=== PATIENT | male | born 1945 | race Caucasian/White ===

== ENCOUNTER 2020-07-30 14:02 | Inpatient (IN) | payer MEDICARE ==
[2020-07-31 19:29] VITALS: BP 131/73; PULSE 75; RESP 16; TEMP 97.8
== END 2020-07-31 22:09 | disposition short-term general hospital (02) | DRG 439 ==
LOC: EC 14:02 → 5NMEDONC 17:14
PROVIDERS: ADMIT Internal Medicine; ATTEND Internal Medicine
DX: K86.89 Other specified diseases of pancreas (principal); K80.21 Calculus of gallbladder without cholecystitis with obstruction; K82.1 Hydrops of gallbladder; I10 Essential (primary) hypertension; R21 Rash and other nonspecific skin eruption; R19.09 Other intra-abdominal and pelvic swelling, mass and lump; K82.8 Other specified diseases of gallbladder; K85.90 Acute pancreatitis without necrosis or infection, unspecified; Z79.82 Long term (current) use of aspirin; Z80.0 Family history of malignant neoplasm of digestive organs; Z85.828 Personal history of other malignant neoplasm of skin; Z20.822 Contact with and (suspected) exposure to COVID-19; Z82.49 Family history of ischemic heart disease and other diseases of the circulatory system; Z79.899 Other long term (current) drug therapy
CPT/HCPCS: 36415; 74177; 76705; 80053; 80074; 83690; 83735; 85025; 85027; 85610; 85730; 87635; 99285

== ENCOUNTER 2020-08-08 23:07 | Emergency (ER) | payer MEDICARE ==
[2020-08-08 23:15] VITALS: TEMP 98.6
[2020-08-08] MEDS ORDERED: SODIUM CHLORIDE 0.9% 500 ML 500 ML IV ONE (23:54)
--- NOTE | 2020-08-09 00:29 | ED ---
General Adult HPI - General Chief complaint: Weakness Stated complaint: Shaking Time Seen by Provider: 08/08/20 23:31 Source: patient, family Mode of arrival: ambulatory Limitations: no limitations - History of Present Illness Initial comments: 74-year-old male patient recently diagnosed with pancreatic cancer, underwent placement of a pancreatic duct stent 4 days ago at [facility], presents to the emergency department today after having an episode of generalized shaking. Patient states that he suddenly started to have full body shaking. States he's been feeling well throughout the day. States the shaking is now resolved. Denies any known fever or chills. Denies any current pain or discomfort. States he is urinating without difficulty. States stools have been soft today. No bloody or black stools. Denies nausea or vomiting. Patient denies any recent rash, cough, shortness of breath, chest pain, abdominal pain, back pain, numbness, tingling, dizziness, weakness, hematuria, dysuria, urinary urgency, urinary frequency, headache, visual changes, or any other complaints. - Related Data Home Medications Medication Instructions Recorded Confirmed Aspirin 81 mg PO HS 07/30/20 07/30/20 amLODIPine BESYLATE [Norvasc] 2.5 mg PO BID 07/30/20 07/30/20 Allergies Allergy/AdvReac Type Severity Reaction Status Date / Time No Known Allergies Allergy Verified 08/08/20 23:15 Review of Systems ROS Statement: Those systems with pertinent positive or pertinent negative responses have been documented in the HPI. ROS Other: All systems not noted in ROS Statement are negative. Past Medical History Past Medical History: Hypertension Additional Past Medical History / Comment(s): pancreatic cancer 07/2020 History of Any Multi-Drug Resistant Organisms: None Reported Past Surgical History: No Surgical Hx Reported Additional Past Surgical History / Comment(s): skin cancer removal, pancreatic stent Past Anesthesia/Blood Transfusion Reactions: No Reported Reaction Past Psychological History: No Psychological Hx Reported Smoking Status: Never smoker Past Alcohol Use History: Occasional Past Drug Use History: None Reported - Past Family History Father Additional Family Medical History / Comment(s): pancreatic cancer, [place] X 1, gallstones removed Mother Family Medical History: Cancer, CVA/TIA Additional Family Medical History / Comment(s): Skin cancer, CVA General Exam Limitations: no limitations General appearance: alert, in no apparent distress, other (Physical well- developed, well-nourished adult male patient in no acute distress. Vital signs upon presentation are temperature 98.6F, pulse 112, respirations 18, blood pressure 133/70, pulse ox 95% on room air.) Eye exam: Present: normal appearance, PERRL, EOMI, scleral icterus. Absent: conjunctival injection, periorbital swelling ENT exam: Present: normal exam, normal oropharynx, mucous membranes moist Respiratory exam: Present: normal lung sounds bilaterally Cardiovascular Exam: Present: regular rate, normal rhythm, normal heart sounds. Absent: systolic murmur, diastolic murmur, rubs, gallop, clicks GI/Abdominal exam: Present: soft, normal bowel sounds. Absent: distended, tenderness, guarding, rebound, rigid Neurological exam: Present: alert, oriented X3, CN II-XII intact Psychiatric exam: Present: normal affect, normal mood Skin exam: Present: warm, dry, intact, other (Jaundice). Absent: rash Course Vital Signs 08/08/20 08/09/20 23:08 01:32 Temperature 98.6 F Pulse Rate 112 H 86 Respiratory 18 16 Rate Blood Pressure 133/70 127/73 O2 Sat by Pulse 95 100 Oximetry Medical Decision Making - Medical Decision Making 74-year-old male patient recently diagnosed with pancreatic cancer, had pink-red icteric stent placed for obstruction at [facility] within the last week presents tonight after having an episode of shaking chills not feeling well. Physical examination did reveal soft nontender abdomen. He did have jaundice. Afebrile mildly tachycardic upon arrival. Blood pressure stable. Labs reviewed and did reveal white blood cell count 10.9, hemoglobin 9.9, potassium 3.4, BUN 23, bilirubin 21.1, AST 76, ALT 94, alk phos 523. Urinalysis did have 7 red blood cells, 4+ bilirubin, no evidence for infection. We did obtain blood cultures, started Zosyn. He will be transferred back to [facility] due to critical bilirubin. Dr. Arteaga is accepting. [facility] will call back with bed placement. Patient and family are agreeable. Case discussed with my attending Dr. George. - Lab Data Result diagrams: 08/09/20 00:01 08/09/20 00:01 Lab Results 08/09/20 08/09/20 08/09/20 Range/Units 00:01 00:01 00:01 WBC 10.9 H (3.8-10.6) k/uL RBC 3.07 L (4.30-5.90) m/uL Hgb 9.9 L D (13.0-17.5) gm/dL Hct 28.0 L (39.0-53.0) % MCV 91.2 (80.0-100.0) fL MCH 32.2 (25.0-35.0) pg MCHC 35.3 (31.0-37.0) g/dL RDW 17.4 H (11.5-15.5) % Plt Count 213 (150-450) k/uL MPV 9.8 Neutrophils % 85 % Lymphocytes % 6 % Monocytes % 7 % Eosinophils % 1 % Basophils % 0 % Neutrophils # 9.2 H (1.3-7.7) k/uL Lymphocytes # 0.7 L (1.0-4.8) k/uL Monocytes # 0.8 (0-1.0) k/uL Eosinophils # 0.1 (0-0.7) k/uL Basophils # 0.0 (0-0.2) k/uL Anisocytosis Slight Sodium 134 L (137-145) mmol/L Potassium 3.4 L (3.5-5.1) mmol/L Chloride 100 (98-107) mmol/L Carbon Dioxide 23 (22-30) mmol/L Anion Gap 11 mmol/L BUN 23 H (9-20) mg/dL Creatinine 0.97 (0.66-1.25) mg/dL Est GFR (CKD-EPI)AfAm >90 (>60 ml/min/1.73 sqM) Est GFR (CKD-EPI)NonAf 78 (>60 ml/min/1.73 sqM) Glucose 197 H (74-99) mg/dL Plasma Lactic Acid Gaurav (0.7-2.0) mmol/L Calcium 8.8 (8.4-10.2) mg/dL Total Bilirubin 21.1 H* (0.2-1.3) mg/dL AST 76 H (17-59) U/L ALT 94 H (4-49) U/L Alkaline Phosphatase 523 H (38-126) U/L Total Protein 7.0 (6.3-8.2) g/dL Albumin 3.3 L (3.5-5.0) g/dL Urine Color Dark Brown Urine Appearance Cloudy (Clear) Urine pH 5.5 (5.0-8.0) Ur Specific [place] 1.020 (1.001-1.035) Urine Protein 1+ H (Negative) Urine Glucose (UA) 1+ H (Negative) Urine Ketones Negative (Negative) Urine Blood Small H (Negative) Urine Nitrite Negative (Negative) Urine Bilirubin 4+ H (Negative) Urine Urobilinogen 6.0 (<2.0) mg/dL Ur Leukocyte Esterase Negative (Negative) Urine RBC 7 H (0-5) /hpf Urine WBC 5 (0-5) /hpf Ur Squamous Epith Cells <1 (0-4) /hpf Amorphous Sediment Rare H (None) /hpf Urine Bacteria Rare H (None) /hpf Granular Casts 1 (0) /lpf Urine Mucus Occasional H (None) /hpf 08/09/20 Range/Units 00:01 WBC (3.8-10.6) k/uL RBC (4.30-5.90) m/uL Hgb (13.0-17.5) gm/dL Hct (39.0-53.0) % MCV (80.0-100.0) fL MCH (25.0-35.0) pg MCHC (31.0-37.0) g/dL RDW (11.5-15.5) % Plt Count (150-450) k/uL MPV Neutrophils % % Lymphocytes % % Monocytes % % Eosinophils % % Basophils % % Neutrophils # (1.3-7.7) k/uL Lymphocytes # (1.0-4.8) k/uL Monocytes # (0-1.0) k/uL Eosinophils # (0-0.7) k/uL Basophils # (0-0.2) k/uL Anisocytosis Sodium (137-145) mmol/L Potassium (3.5-5.1) mmol/L Chloride (98-107) mmol/L Carbon Dioxide (22-30) mmol/L Anion Gap mmol/L BUN (9-20) mg/dL Creatinine (0.66-1.25) mg/dL Est GFR (CKD-EPI)AfAm (>60 ml/min/1.73 sqM) Est GFR (CKD-EPI)NonAf (>60 ml/min/1.73 sqM) Glucose (74-99) mg/dL Plasma Lactic Acid Gaurav 1.7 (0.7-2.0) mmol/L Calcium (8.4-10.2) mg/dL Total Bilirubin (0.2-1.3) mg/dL AST (17-59) U/L ALT (4-49) U/L Alkaline Phosphatase (38-126) U/L Total Protein (6.3-8.2) g/dL Albumin (3.5-5.0) g/dL Urine Color Urine Appearance (Clear) Urine pH (5.0-8.0) Ur Specific [place] (1.001-1.035) Urine Protein (Negative) Urine Glucose (UA) (Negative) Urine Ketones (Negative) Urine Blood (Negative) Urine Nitrite (Negative) Urine Bilirubin (Negative) Urine Urobilinogen (<2.0) mg/dL Ur Leukocyte Esterase (Negative) Urine RBC (0-5) /hpf Urine WBC (0-5) /hpf Ur Squamous Epith Cells (0-4) /hpf Amorphous Sediment (None) /hpf Urine Bacteria (None) /hpf Granular Casts (0) /lpf Urine Mucus (None) /hpf Disposition Clinical Impression: Hyperbilirubinemia, Leukocytosis Disposition: OTHER INSTITUTION NOT DEFINED Condition: Serious Referrals: Ángel Galvin MD [Primary Care Provider] - 1-2 days - Out of Hospital Transfer - Req. Specs Out of Hospital Transfer - Requested Specifics: Other Emergency Center (General Medical Floor)
[2020-08-09 00:38] LABS: ALT 94 U/L (4-49); AST 76 U/L (17-59); African American GFR (CKD) >90 (>60 ml/min/1.73 sqM); Albumin 3.3 g/dL (3.5-5.0); Alkaline Phosphatase 523 U/L (38-126); Anion Gap 11 mmol/L; Blood Urea Nitrogen 23 mg/dL (9-20); Calcium 8.8 mg/dL (8.4-10.2); Carbon Dioxide 23 mmol/L (22-30); Chloride 100 mmol/L (98-107); Glucose 197 mg/dL (74-99); Non-African American GFR(CKD) 78 (>60 ml/min/1.73 sqM); Potassium 3.4 mmol/L (3.5-5.1); Sodium 134 mmol/L (137-145)
[2020-08-09 00:47] LABS: Anisocytosis Slight; Basophils % (A) 0 %; Eosinophils # (A) 0.1 k/uL (0-0.7); Eosinophils % (A) 1 %; Lymphocytes # (A) 0.7 k/uL (1.0-4.8); Lymphocytes % (A) 6 %; MCH 32.2 pg (25.0-35.0); MCHC 35.3 g/dL (31.0-37.0); MCV 91.2 fL (80.0-100.0); Mean Platelet Volume 9.8; Monocytes # (A) 0.8 k/uL (0-1.0); Monocytes % (A) 7 %; Neutrophils # (A) 9.2 k/uL (1.3-7.7); Neutrophils % (A) 85 %; Platelet Count 213 k/uL (150-450); RBC 3.07 m/uL (4.30-5.90); RDW 17.4 % (11.5-15.5); Total Bilirubin 21.1 mg/dL (0.2-1.3); WBC 10.9 k/uL (3.8-10.6)
[2020-08-09 00:54] LABS: Amorphous Sediment,Urine Rare /hpf; Appearance,Urine Cloudy (Clear); Bacteria,Urine Rare /hpf; Bilirubin,Urine 4+ (Negative); Blood,Urine Small (Negative); Color,Urine Dark Brown; Glucose,Urine (UA) 1+ (Negative); Granular Casts,Urine 1 /lpf (0); Ketones,Urine Negative (Negative); Leukocyte Esterase,Urine Negative (Negative); Mucus,Urine Occasional /hpf; Nitrite,Urine Negative (Negative); PH, Urine 5.5 (5.0-8.0); Protein,Urine 1+ (Negative); RBC,Urine 7 /hpf (0-5); Squamous Epithelial Cell,Urine <1 /hpf (0-4); WBC,Urine 5 /hpf (0-5)
[2020-08-09 00:55] LABS: HGB 9.9 gm/dL (13.0-17.5)
[2020-08-09] MEDS ORDERED: PIPERACILLIN-TAZOBACTAM 3.375 GM in SODIUM CHLORIDE 0.9% 100 ML IVPB STA (01:41)
[2020-08-09 08:01] VITALS: BP 106/67; PULSE 85; RESP 18
[2020-08-09] MEDS ORDERED: PIPERACILLIN-TAZOBACTAM 3.375 GM in SODIUM CHLORIDE 0.9% 100 ML IVPB SCH (11:00)
== END 2020-08-09 08:30 | disposition other institution (70) ==
LOC: EC 23:07
DX: E80.6 Other disorders of bilirubin metabolism (principal); D72.829 Elevated white blood cell count, unspecified; I10 Essential (primary) hypertension; C25.9 Malignant neoplasm of pancreas, unspecified; Z79.82 Long term (current) use of aspirin; Z79.899 Other long term (current) drug therapy
CPT/HCPCS: 96365 ×2; 96361 ×2; 99285 ×2; 36415; 80053; 83605; 85025; 81001; 87040; 87635; J2543

== ENCOUNTER 2020-09-17 23:06 | Emergency (ER) | payer MEDICARE ==
[2020-09-17] MEDS ORDERED: ACETAMINOPHEN TAB 500 MG TAB PO STA (23:13)
[2020-09-17] MEDS ORDERED: IBUPROFEN 600 MG TAB PO STA (23:13)
[2020-09-17] MEDS ORDERED: SODIUM CHLORIDE 0.9% 1,000 ML IV STA ×2 (23:13)
--- NOTE | 2020-09-17 23:13 | ED ---
Fever HPI - General Chief Complaint: Fever Stated Complaint: Fever Time Seen by Provider: 09/17/20 23:09 Source: patient, RN notes reviewed, old records reviewed Mode of arrival: ambulatory Limitations: no limitations - History of Present Illness Initial Comments: This is a 75-year-old male DF for evaluation patient Dese for evaluation of fever. Patient has known pancreatic cancer noticed fever today with recent chemotherapy. No prior fever since his chemotherapy until today. He has no complaints feels well normal chest pain shortness of breath no cough no congestion no belly pain no nausea vomiting or diarrhea, patient also denies sore throat or rash MD Complaint: fever -: hour(s) Temperature Source: subjective Context: on chemotherapy Associated Symptoms: denies other symptoms Treatments Prior to Arrival: none - Related Data Home Medications Medication Instructions Recorded Confirmed Aspirin 81 mg PO HS 07/30/20 07/30/20 amLODIPine BESYLATE [Norvasc] 2.5 mg PO BID 07/30/20 07/30/20 Allergies Allergy/AdvReac Type Severity Reaction Status Date / Time No Known Allergies Allergy Verified 09/17/20 23:12 Review of Systems ROS Statement: Those systems with pertinent positive or pertinent negative responses have been documented in the HPI. ROS Other: All systems not noted in ROS Statement are negative. Past Medical History Past Medical History: Cancer, Hypertension Additional Past Medical History / Comment(s): pancreatic cancer 07/2020, chemo History of Any Multi-Drug Resistant Organisms: None Reported Past Surgical History: No Surgical Hx Reported Additional Past Surgical History / Comment(s): skin cancer removal, pancreatic stent Past Anesthesia/Blood Transfusion Reactions: No Reported Reaction Past Psychological History: No Psychological Hx Reported Smoking Status: Never smoker Past Alcohol Use History: Occasional Past Drug Use History: None Reported - Past Family History Father Additional Family Medical History / Comment(s): pancreatic cancer, [place] X 1, gallstones removed Mother Family Medical History: Cancer, CVA/TIA Additional Family Medical History / Comment(s): Skin cancer, CVA General Exam Limitations: no limitations General appearance: alert, in no apparent distress Head exam: Present: atraumatic, normocephalic, normal inspection Eye exam: Present: normal appearance, PERRL, EOMI. Absent: scleral icterus, conjunctival injection, periorbital swelling ENT exam: Present: normal exam, mucous membranes moist Neck exam: Present: normal inspection. Absent: tenderness, meningismus, lymphadenopathy Respiratory exam: Present: normal lung sounds bilaterally. Absent: respiratory distress, wheezes, rales, rhonchi, stridor Cardiovascular Exam: Present: regular rate, normal rhythm, normal heart sounds. Absent: systolic murmur, diastolic murmur, rubs, gallop, clicks GI/Abdominal exam: Present: soft, normal bowel sounds. Absent: distended, tenderness, guarding, rebound, rigid Extremities exam: Present: normal inspection, full ROM, normal capillary refill. Absent: tenderness, pedal edema, joint swelling, calf tenderness Back exam: Present: normal inspection Neurological exam: Present: alert, oriented X3, CN II-XII intact Psychiatric exam: Present: normal affect, normal mood Skin exam: Present: warm, dry, intact, normal color. Absent: rash Course Vital Signs 09/17/20 09/18/20 23:08 00:33 Temperature 99.9 F H 99.1 F Pulse Rate 115 H Respiratory 17 Rate Blood Pressure 133/74 O2 Sat by Pulse 97 Oximetry - Reevaluation(s) Reevaluation #1: 09/18/20 01:07 Medical record is reviewed Reevaluation #2: 09/18/20 01:07 Patient remains without complaint throughout ER stay Reevaluation #3: 09/18/20 01:07 Patient informed of results and questions are answered Medical Decision Making - Medical Decision Making 72 female DF for evaluation patient Dese for evaluation of fever with chemotherapy. Patient is not neutropenic, lab values are abnormal but improved from prior, patient is no found "cause a fever, we will await blood culture, otherwise feels well and can be discharged home - Lab Data Result diagrams: 09/17/20 23:48 09/17/20 23:48 Lab Results 09/17/20 09/17/20 09/17/20 Range/Units 23:48 23:48 23:48 WBC 12.3 H (3.8-10.6) k/uL RBC 2.48 L (4.30-5.90) m/uL Hgb 8.5 L (13.0-17.5) gm/dL Hct 23.9 L (39.0-53.0) % MCV 96.5 D (80.0-100.0) fL MCH 34.5 (25.0-35.0) pg MCHC 35.7 (31.0-37.0) g/dL RDW 14.1 (11.5-15.5) % Plt Count 197 (150-450) k/uL MPV 8.6 Neutrophils % 89 % Lymphocytes % 7 % Monocytes % 3 % Eosinophils % 0 % Basophils % 1 % Neutrophils # 11.0 H (1.3-7.7) k/uL Lymphocytes # 0.8 L (1.0-4.8) k/uL Monocytes # 0.4 (0-1.0) k/uL Eosinophils # 0.0 (0-0.7) k/uL Basophils # 0.1 (0-0.2) k/uL Poikilocytosis Slight Sodium 131 L (137-145) mmol/L Potassium 3.9 (3.5-5.1) mmol/L Chloride 99 (98-107) mmol/L Carbon Dioxide 24 (22-30) mmol/L Anion Gap 8 mmol/L BUN 19 (9-20) mg/dL Creatinine 0.72 (0.66-1.25) mg/dL Est GFR (CKD-EPI)AfAm >90 (>60 ml/min/1.73 sqM) Est GFR (CKD-EPI)NonAf >90 (>60 ml/min/1.73 sqM) Glucose 216 H (74-99) mg/dL Plasma Lactic Acid Gaurav 1.4 (0.7-2.0) mmol/L Calcium 8.7 (8.4-10.2) mg/dL Magnesium 2.0 (1.6-2.3) mg/dL Total Bilirubin 3.7 H (0.2-1.3) mg/dL AST 160 H (17-59) U/L ALT 118 H (4-49) U/L Alkaline Phosphatase 1020 H (38-126) U/L Lactate Dehydrogenase 899 H (313-618) U/L C-Reactive Protein 4.8 H (<1.0) mg/dL Total Protein 6.0 L (6.3-8.2) g/dL Albumin 3.0 L (3.5-5.0) g/dL Urine Color Urine Appearance (Clear) Urine pH (5.0-8.0) Ur Specific [place] (1.001-1.035) Urine Protein (Negative) Urine Glucose (UA) (Negative) Urine Ketones (Negative) Urine Blood (Negative) Urine Nitrite (Negative) Urine Bilirubin (Negative) Urine Urobilinogen (<2.0) mg/dL Ur Leukocyte Esterase (Negative) Urine RBC (0-5) /hpf Urine WBC (0-5) /hpf Urine Mucus (None) /hpf 09/18/20 Range/Units 00:03 WBC (3.8-10.6) k/uL RBC (4.30-5.90) m/uL Hgb (13.0-17.5) gm/dL Hct (39.0-53.0) % MCV (80.0-100.0) fL MCH (25.0-35.0) pg MCHC (31.0-37.0) g/dL RDW (11.5-15.5) % Plt Count (150-450) k/uL MPV Neutrophils % % Lymphocytes % % Monocytes % % Eosinophils % % Basophils % % Neutrophils # (1.3-7.7) k/uL Lymphocytes # (1.0-4.8) k/uL Monocytes # (0-1.0) k/uL Eosinophils # (0-0.7) k/uL Basophils # (0-0.2) k/uL Poikilocytosis Sodium (137-145) mmol/L Potassium (3.5-5.1) mmol/L Chloride (98-107) mmol/L Carbon Dioxide (22-30) mmol/L Anion Gap mmol/L BUN (9-20) mg/dL Creatinine (0.66-1.25) mg/dL Est GFR (CKD-EPI)AfAm (>60 ml/min/1.73 sqM) Est GFR (CKD-EPI)NonAf (>60 ml/min/1.73 sqM) Glucose (74-99) mg/dL Plasma Lactic Acid Gaurav (0.7-2.0) mmol/L Calcium (8.4-10.2) mg/dL Magnesium (1.6-2.3) mg/dL Total Bilirubin (0.2-1.3) mg/dL AST (17-59) U/L ALT (4-49) U/L Alkaline Phosphatase (38-126) U/L Lactate Dehydrogenase (313-618) U/L C-Reactive Protein (<1.0) mg/dL Total Protein (6.3-8.2) g/dL Albumin (3.5-5.0) g/dL Urine Color Dark Yellow Urine Appearance Clear (Clear) Urine pH 6.5 (5.0-8.0) Ur Specific [place] 1.018 (1.001-1.035) Urine Protein 1+ H (Negative) Urine Glucose (UA) 3+ H (Negative) Urine Ketones Negative (Negative) Urine Blood Moderate H (Negative) Urine Nitrite Negative (Negative) Urine Bilirubin 1+ H (Negative) Urine Urobilinogen 6.0 (<2.0) mg/dL Ur Leukocyte Esterase Negative (Negative) Urine RBC 117 H (0-5) /hpf Urine WBC 2 (0-5) /hpf Urine Mucus Rare H (None) /hpf - EKG Data -: EKG Interpreted by Me (EKG is sinus rhythm 100 [place] 148 QRS 86 QTc 441) - Radiology Data Radiology results: report reviewed (Chest x-rays negative for acute disease), image reviewed Disposition Clinical Impression: Effect of chemotherapy, Fever, Elevated liver enzymes, Jaundice Disposition: HOME SELF-CARE Condition: Good Instructions (If sedation given, give patient instructions): Fever in Adults (ED) Is patient prescribed a controlled substance at d/c from ED?: No Referrals: Ángel Galvin MD [Primary Care Provider] - 1-2 days
--- NOTE | 2020-09-17 23:42 | XR ---
EXAMINATION TYPE: XR chest 1V portable DATE OF EXAM: 09/17/2020 COMPARISON: NONE HISTORY: Fever TECHNIQUE: Single view FINDINGS: There is some mild atelectasis left lung base. The other lung [place] are fairly clear. Ther e is right central venous catheter with tip in the superior vena cava. Heart and mediastinum are norm al. There is no pleural effusion. There is no heart failure. IMPRESSION: Mild subsegmental atelectasis left lower lobe. Normal heart.
[2020-09-18 00:22] LABS: Basophils # (A) 0.1 k/uL (0-0.2); Basophils % (A) 1 %; Eosinophils % (A) 0 %; HCT 23.9 % (39.0-53.0); HGB 8.5 gm/dL (13.0-17.5); Lymphocytes # (A) 0.8 k/uL (1.0-4.8); Lymphocytes % (A) 7 %; MCH 34.5 pg (25.0-35.0); MCHC 35.7 g/dL (31.0-37.0); Mean Platelet Volume 8.6; Monocytes # (A) 0.4 k/uL (0-1.0); Monocytes % (A) 3 %; Neutrophils % (A) 89 %; Platelet Count 197 k/uL (150-450); Poikilocytosis Slight; RBC 2.48 m/uL (4.30-5.90); RDW 14.1 % (11.5-15.5); WBC 12.3 k/uL (3.8-10.6)
[2020-09-18 00:23] LABS: ALT 118 U/L (4-49); AST 160 U/L (17-59); African American GFR (CKD) >90 (>60 ml/min/1.73 sqM); Alkaline Phosphatase 1020 U/L (38-126); Anion Gap 8 mmol/L; Blood Urea Nitrogen 19 mg/dL (9-20); C Reactive Protein 4.8 mg/dL (<1.0); Calcium 8.7 mg/dL (8.4-10.2); Carbon Dioxide 24 mmol/L (22-30); Chloride 99 mmol/L (98-107); Glucose 216 mg/dL (74-99); LDH 899 U/L (313-618); Non-African American GFR(CKD) >90 (>60 ml/min/1.73 sqM); Potassium 3.9 mmol/L (3.5-5.1); Sodium 131 mmol/L (137-145); Total Bilirubin 3.7 mg/dL (0.2-1.3)
[2020-09-18 00:26] LABS: MCV 96.5 fL (80.0-100.0)
[2020-09-18 00:40] LABS: Appearance,Urine Clear (Clear); Bilirubin,Urine 1+ (Negative); Blood,Urine Moderate (Negative); Color,Urine Dark Yellow; Glucose,Urine (UA) 3+ (Negative); Ketones,Urine Negative (Negative); Leukocyte Esterase,Urine Negative (Negative); Mucus,Urine Rare /hpf; Nitrite,Urine Negative (Negative); PH, Urine 6.5 (5.0-8.0); Protein,Urine 1+ (Negative); RBC,Urine 117 /hpf (0-5); Specific Gravity,Urine 1.018 (1.001-1.035); WBC,Urine 2 /hpf (0-5)
[2020-09-18] MEDS ORDERED: cefTRIAXone IN SWFI 1,000 MG/10 ML SYRINGE IVP STA (01:06)
[2020-09-18 01:12] VITALS: BP 116/72; PULSE 86; RESP 16; TEMP 98
== END 2020-09-18 01:18 | disposition home or self-care (01) ==
LOC: EC 23:06
DX: R50.9 Fever, unspecified (principal); R17 Unspecified jaundice; R94.5 Abnormal results of liver function studies; T45.1X5A Adverse effect of antineoplastic and immunosuppressive drugs, initial encounter; I10 Essential (primary) hypertension; Z79.82 Long term (current) use of aspirin; Z79.899 Other long term (current) drug therapy; Z82.49 Family history of ischemic heart disease and other diseases of the circulatory system; Z85.07 Personal history of malignant neoplasm of pancreas
CPT/HCPCS: 96361; 96374; 99284; 36415; 93005; 80053; 83605; 83615; 83735; 85025; 86140; 81001; 87040; 71045; J0696

== ENCOUNTER 2020-09-23 02:26 | Inpatient (IN) | payer MEDICARE ==
[2020-09-23] MEDS ORDERED: SODIUM CHLORIDE 0.9% 1,000 ML IV STA (02:32)
--- NOTE | 2020-09-23 02:34 | ED ---
Fever HPI - General Stated Complaint: Fever Time Seen by Provider: 09/23/20 02:28 - Related Data Home Medications Medication Instructions Recorded Confirmed Aspirin 81 mg PO HS 07/30/20 07/30/20 amLODIPine BESYLATE [Norvasc] 2.5 mg PO BID 07/30/20 07/30/20 Allergies Allergy/AdvReac Type Severity Reaction Status Date / Time No Known Allergies Allergy Verified 09/17/20 23:12 Review of Systems ROS Statement: Those systems with pertinent positive or pertinent negative responses have been documented in the HPI. ROS Other: All systems not noted in ROS Statement are negative. Past Medical History Past Medical History: Cancer, Hypertension Additional Past Medical History / Comment(s): pancreatic cancer 07/2020, chemo History of Any Multi-Drug Resistant Organisms: None Reported Past Surgical History: No Surgical Hx Reported Additional Past Surgical History / Comment(s): skin cancer removal, pancreatic stent Past Anesthesia/Blood Transfusion Reactions: No Reported Reaction Past Psychological History: No Psychological Hx Reported Smoking Status: Never smoker Past Alcohol Use History: Occasional Past Drug Use History: None Reported - Past Family History Father Additional Family Medical History / Comment(s): pancreatic cancer, [place] X 1, gallstones removed Mother Family Medical History: Cancer, CVA/TIA Additional Family Medical History / Comment(s): Skin cancer, CVA Course Vital Signs 09/23/20 09/23/20 09/23/20 02:27 04:05 06:01 Temperature 101.9 F H 100.1 F H 98.2 F Pulse Rate 105 H 94 79 Respiratory 18 12 15 Rate Blood Pressure 112/57 112/57 117/64 O2 Sat by Pulse 98 99 98 Oximetry Medical Decision Making - Lab Data Result diagrams: 09/23/20 02:38 09/23/20 02:38 Lab Results 09/23/20 09/23/20 09/23/20 Range/Units 02:38 02:38 02:38 WBC 16.7 H (3.8-10.6) k/uL RBC 2.16 L (4.30-5.90) m/uL Hgb 7.3 L (13.0-17.5) gm/dL Hct 20.5 L (39.0-53.0) % MCV 94.9 (80.0-100.0) fL MCH 34.0 (25.0-35.0) pg MCHC 35.8 (31.0-37.0) g/dL RDW 14.8 (11.5-15.5) % Plt Count 233 (150-450) k/uL MPV 9.1 Neutrophils % 89 % Lymphocytes % 5 % Monocytes % 5 % Eosinophils % 0 % Basophils % 1 % Neutrophils # 15.0 H (1.3-7.7) k/uL Lymphocytes # 0.8 L (1.0-4.8) k/uL Monocytes # 0.8 (0-1.0) k/uL Eosinophils # 0.0 (0-0.7) k/uL Basophils # 0.1 (0-0.2) k/uL Poikilocytosis Moderate Sodium 130 L (137-145) mmol/L Potassium 2.5 L* (3.5-5.1) mmol/L Chloride 98 (98-107) mmol/L Carbon Dioxide 23 (22-30) mmol/L Anion Gap 9 mmol/L BUN 15 (9-20) mg/dL Creatinine 0.73 (0.66-1.25) mg/dL Est GFR (CKD-EPI)AfAm >90 (>60 ml/min/1.73 sqM) Est GFR (CKD-EPI)NonAf >90 (>60 ml/min/1.73 sqM) Glucose 181 H (74-99) mg/dL Plasma Lactic Acid Gaurav (0.7-2.0) mmol/L Calcium 8.6 (8.4-10.2) mg/dL Phosphorus 2.3 L (2.5-4.5) mg/dL Magnesium 2.0 (1.6-2.3) mg/dL Total Bilirubin 2.8 H (0.2-1.3) mg/dL AST 59 (17-59) U/L ALT 41 (4-49) U/L Alkaline Phosphatase 1366 H (38-126) U/L Total Protein 5.7 L (6.3-8.2) g/dL Albumin 2.9 L (3.5-5.0) g/dL Lipase 77 (23-300) U/L Urine Color [place] Urine Appearance Cloudy (Clear) Urine pH 6.0 (5.0-8.0) Ur Specific [place] 1.028 (1.001-1.035) Urine Protein 2+ H (Negative) Urine Glucose (UA) 1+ H (Negative) Urine Ketones Negative (Negative) Urine Blood Trace H (Negative) Urine Nitrite Negative (Negative) Urine Bilirubin 2+ H (Negative) Urine Urobilinogen 12.0 (<2.0) mg/dL Ur Leukocyte Esterase Negative (Negative) Urine RBC 4 (0-5) /hpf Urine WBC 11 H (0-5) /hpf Calcium Oxalate Crystal Many H (None) /hpf Urine Mucus Many H (None) /hpf 09/23/20 Range/Units 02:38 WBC (3.8-10.6) k/uL RBC (4.30-5.90) m/uL Hgb (13.0-17.5) gm/dL Hct (39.0-53.0) % MCV (80.0-100.0) fL MCH (25.0-35.0) pg MCHC (31.0-37.0) g/dL RDW (11.5-15.5) % Plt Count (150-450) k/uL MPV Neutrophils % % Lymphocytes % % Monocytes % % Eosinophils % % Basophils % % Neutrophils # (1.3-7.7) k/uL Lymphocytes # (1.0-4.8) k/uL Monocytes # (0-1.0) k/uL Eosinophils # (0-0.7) k/uL Basophils # (0-0.2) k/uL Poikilocytosis Sodium (137-145) mmol/L Potassium (3.5-5.1) mmol/L Chloride (98-107) mmol/L Carbon Dioxide (22-30) mmol/L Anion Gap mmol/L BUN (9-20) mg/dL Creatinine (0.66-1.25) mg/dL Est GFR (CKD-EPI)AfAm (>60 ml/min/1.73 sqM) Est GFR (CKD-EPI)NonAf (>60 ml/min/1.73 sqM) Glucose (74-99) mg/dL Plasma Lactic Acid Gaurav 1.3 (0.7-2.0) mmol/L Calcium (8.4-10.2) mg/dL Phosphorus (2.5-4.5) mg/dL Magnesium (1.6-2.3) mg/dL Total Bilirubin (0.2-1.3) mg/dL AST (17-59) U/L ALT (4-49) U/L Alkaline Phosphatase (38-126) U/L Total Protein (6.3-8.2) g/dL Albumin (3.5-5.0) g/dL Lipase (23-300) U/L Urine Color Urine Appearance (Clear) Urine pH (5.0-8.0) Ur Specific [place] (1.001-1.035) Urine Protein (Negative) Urine Glucose (UA) (Negative) Urine Ketones (Negative) Urine Blood (Negative) Urine Nitrite (Negative) Urine Bilirubin (Negative) Urine Urobilinogen (<2.0) mg/dL Ur Leukocyte Esterase (Negative) Urine RBC (0-5) /hpf Urine WBC (0-5) /hpf Calcium Oxalate Crystal (None) /hpf Urine Mucus (None) /hpf - EKG Data -: EKG Interpreted by Me (EKG is sinus rhythm 88 [place] 146 QRS 100 QTc 460) Disposition Clinical Impression: Fever, Leukocytosis, Effect of chemotherapy Disposition: ADMITTED IP TO THIS HOSP Condition: Good Is patient prescribed a controlled substance at d/c from ED?: No
--- NOTE | 2020-09-23 02:53 | XR ---
EXAMINATION TYPE: XR chest 1V portable DATE OF EXAM: 09/23/2020 COMPARISON: 09/17/2020 HISTORY: Fever TECHNIQUE: Single view FINDINGS: Heart and mediastinum are normal. Lungs are clear of infiltrate. Diaphragm is normal. There is small linear density at the left lung base. There is right central venous catheter with tip in th e superior vena cava. IMPRESSION: Minimal subsegmental atelectasis left lung base without change. No heart failure. No pulm onary consolidation.
[2020-09-23] MEDS ORDERED: ACETAMINOPHEN TAB 500 MG TAB PO STA (03:17)
[2020-09-23] MEDS ORDERED: IBUPROFEN 600 MG TAB PO STA (03:17)
[2020-09-23 03:31] LABS: Basophils # (A) 0.1 k/uL (0-0.2); Basophils % (A) 1 %; Eosinophils % (A) 0 %; HCT 20.5 % (39.0-53.0); HGB 7.3 gm/dL (13.0-17.5); Lymphocytes # (A) 0.8 k/uL (1.0-4.8); Lymphocytes % (A) 5 %; MCHC 35.8 g/dL (31.0-37.0); MCV 94.9 fL (80.0-100.0); Mean Platelet Volume 9.1; Monocytes # (A) 0.8 k/uL (0-1.0); Monocytes % (A) 5 %; Neutrophils % (A) 89 %; Platelet Count 233 k/uL (150-450); Poikilocytosis Moderate; RBC 2.16 m/uL (4.30-5.90); RDW 14.8 % (11.5-15.5); WBC 16.7 k/uL (3.8-10.6)
[2020-09-23 03:36] LABS: Appearance,Urine Cloudy (Clear); Bilirubin,Urine 2+ (Negative); Blood,Urine Trace (Negative); Calcium Oxalate Crystals,Urine Many /hpf; Color,Urine Orange; Glucose,Urine (UA) 1+ (Negative); Ketones,Urine Negative (Negative); Leukocyte Esterase,Urine Negative (Negative); Mucus,Urine Many /hpf; Nitrite,Urine Negative (Negative); Protein,Urine 2+ (Negative); RBC,Urine 4 /hpf (0-5); Specific Gravity,Urine 1.028 (1.001-1.035); WBC,Urine 11 /hpf (0-5)
[2020-09-23 03:43] LABS: ALT 41 U/L (4-49); AST 59 U/L (17-59); African American GFR (CKD) >90 (>60 ml/min/1.73 sqM); Albumin 2.9 g/dL (3.5-5.0); Alkaline Phosphatase 1366 U/L (38-126); Anion Gap 9 mmol/L; Blood Urea Nitrogen 15 mg/dL (9-20); Calcium 8.6 mg/dL (8.4-10.2); Carbon Dioxide 23 mmol/L (22-30); Chloride 98 mmol/L (98-107); Glucose 181 mg/dL (74-99); Lipase 77 U/L (23-300); Non-African American GFR(CKD) >90 (>60 ml/min/1.73 sqM); Phosphorus 2.3 mg/dL (2.5-4.5); Sodium 130 mmol/L (137-145); Total Bilirubin 2.8 mg/dL (0.2-1.3); Total Protein 5.7 g/dL (6.3-8.2)
[2020-09-23 03:45] LABS: Potassium 2.5 mmol/L (3.5-5.1)
[2020-09-23] MEDS ORDERED: POTASSIUM BICARBONATE/CIT AC 20 MEQ TABLET.EFF PO ONE ×2 (04:45)
[2020-09-23] MEDS ORDERED: PIPERACILLIN-TAZOBACTAM 3.375 GM in SODIUM CHLORIDE 0.9% 100 ML IVPB ONE ×2 (05:00→05:30)
[2020-09-23] MEDS: SODIUM CHLORIDE 0.9% 1,000 ML IV SCH ×3 (05:49→20:53)
[2020-09-23] MEDS: PANTOPRAZOLE 40 MG/10 ML VIAL IV SCH (05:53)
[2020-09-23] MEDS ORDERED: VANCOMYCIN 1,000 MG in SODIUM CHLORIDE 0.9% 250 ML IVPB STA (10:30)
--- NOTE | 2020-09-23 10:46 | P.CONS ---
History of Present Illness - Reason for Consult Consult date: 09/23/20 pt on chemo for pancreatic adenocarcinoma Requesting physician: Can Johns - Chief Complaint fever - History of Present Illness Mr. Strickland is a 74-year-old male who presented to ER in July 2020, after seeing his PCP, with complaints of abnormal labs and jaundice, x 1 week. Bilirubin was 19.2, AST 145, ALT 202, alkaline phosphatase 953. Gallbladder ultrasound showed a dilated common bile duct as well as a large mobile gallstone. He was intentionally trying to lose wt, denied appetite or energy level changes, was experiencing progressive puritis. CT AP revealed intra and extra-hepatic biliary tree dilation, including gallbladder, pancreatic head mi ldly enlarged, heterogenous and consistent with pancreatic mass. Pt was accepted at [facility] and transferred. He was diagnosed with pancreatic adenocarcinoma. Had port placed and had 1st cycle of treatment last week. Denies GCSF. He was monitoring for temp as directed, he came in for temp of 101F at home and then now returned for temp of 102F, associated with chill and rigors, pancultures pending, denies oral irritation, N,V, cough, abd pain, cramping, bloating, dysuria, hematuria, diarrhea, constipation, swelling, rash or any s/s of infect. Review of Systems 10 point ROS is neg except as stated in HPI Past Medical History Past Medical History: Cancer, Hypertension Additional Past Medical History / Comment(s): pancreatic cancer 07/2020, chemo History of Any Multi-Drug Resistant Organisms: None Reported Past Surgical History: No Surgical Hx Reported Additional Past Surgical History / Comment(s): skin cancer removal, pancreatic stent Past Anesthesia/Blood Transfusion Reactions: No Reported Reaction Past Psychological History: No Psychological Hx Reported Smoking Status: Never smoker Past Alcohol Use History: Occasional Past Drug Use History: None Reported - Past Family History Father Additional Family Medical History / Comment(s): pancreatic cancer, [place] X 1, gallstones removed Mother Family Medical History: Cancer, CVA/TIA Additional Family Medical History / Comment(s): Skin cancer, CVA Medications and Allergies Home Medications Medication Instructions Recorded Confirmed Type amLODIPine BESYLATE [Norvasc] 2.5 mg PO BID 07/30/20 09/23/20 History Prochlorperazine [Compazine] 10 mg PO Q6H PRN 09/23/20 09/23/20 History ondansetron HCL [Zofran] 8 mg PO Q8HR PRN 09/23/20 09/23/20 History Allergies Allergy/AdvReac Type Severity Reaction Status Date / Time No Known Allergies Allergy Verified 09/23/20 07:23 Physical Exam Vitals: Vital Signs Temp Pulse Resp BP Pulse Ox 09/23/20 07:24 84 16 111/57 99 09/23/20 07:00 97.8 F 81 15 107/64 97 09/23/20 06:01 98.2 F 79 15 117/64 98 09/23/20 04:05 100.1 F H 94 12 112/57 99 09/23/20 02:27 101.9 F H 105 H 18 112/57 98 Intake and Output 09/22/20 09/23/20 09/23/20 22:59 06:59 14:59 Other: Weight 60.781 kg - Constitutional General appearance: average body habitus, cooperative, no acute distress - EENT Eyes: anicteric sclerae, EOMI ENT: hearing grossly normal, normal oropharynx - Neck Neck: no lymphadenopathy - Respiratory Respiratory: bilateral: CTA - Cardiovascular Rhythm: regular Heart sounds: normal: S1, S2 Abnormal Heart Sounds: no systolic murmur, no diastolic murmur, no rub, no S3 Gallop, no S4 Gallop, no click, no other leg Peripheral Edema: bilateral: None - Gastrointestinal General gastrointestinal: no absent bowel sounds, no decreased bowel sounds, no distended, no hepatomegaly, no hyperactive bowel sounds, normal bowel sounds, no organomegaly, no rigid, no scaphoid, soft, no splenomegaly, no tenderness, no umbilical hernia, no ventral hernia - Genitourinary rt testicular swelling - Integumentary rt chest wall port site is not red, warm to touch, indurated Integumentary: pale - Neurologic Neurologic: CNII-XII intact - Musculoskeletal Musculoskeletal: strength equal bilaterally - Psychiatric Psychiatric: A&O x's 3, appropriate affect, intact judgment & insight Results CBC & Chem 7: 09/23/20 02:38 09/23/20 02:38 Labs: Abnormal Lab Results - Last 24 Hours (Table) 09/23/20 09/23/20 09/23/20 Range/Units 02:38 02:38 02:38 WBC 16.7 H (3.8-10.6) k/uL RBC 2.16 L (4.30-5.90) m/uL Hgb 7.3 L (13.0-17.5) gm/dL Hct 20.5 L (39.0-53.0) % Neutrophils # 15.0 H (1.3-7.7) k/uL Lymphocytes # 0.8 L (1.0-4.8) k/uL Sodium 130 L (137-145) mmol/L Potassium 2.5 L* (3.5-5.1) mmol/L Glucose 181 H (74-99) mg/dL Phosphorus 2.3 L (2.5-4.5) mg/dL Total Bilirubin 2.8 H (0.2-1.3) mg/dL Alkaline Phosphatase 1366 H (38-126) U/L Total Protein 5.7 L (6.3-8.2) g/dL Albumin 2.9 L (3.5-5.0) g/dL Urine Protein 2+ H (Negative) Urine Glucose (UA) 1+ H (Negative) Urine Blood Trace H (Negative) Urine Bilirubin 2+ H (Negative) Urine WBC 11 H (0-5) /hpf Calcium Oxalate Crystal Many H (None) /hpf Urine Mucus Many H (None) /hpf Assessment and Plan (1) Pancreatic adenocarcinoma Narrative/Plan: S/P 1st cycle of chemo through [facility], Dr. Alber Coffman. From pt description he is likely receiving FOLFIRINOX regimen. Will let his Primary Onc know that he is inpt and confirm treatment type for medical record Current Visit: Yes Status: Acute Priority: High Code(s): C25.9 - MALIGNANT NEOPLASM OF PANCREAS, UNSPECIFIED SNOMED Code(s): 492970339 (2) Fever Narrative/Plan: Pancultures pending. Armandoo added. Requested blood culture to be drawn from port is not already done. US of the liver/gallbladder as pt has CBD stent Testicular US was already ordered. Current Visit: Yes Status: Acute Priority: High Code(s): R50.9 - FEVER, UNSPECIFIED SNOMED Code(s): 703065715 (3) Leukocytosis Narrative/Plan: Pt denies administration of GCSF post chemo. ANC elevated, suspicious for infection-work up in progress. Current Visit: Yes Status: Acute Priority: High Code(s): D72.829 - ELEVATED WHITE BLOOD CELL COUNT, UNSPECIFIED SNOMED Code(s): 388914946 (4) Antineoplastic chemotherapy induced anemia Narrative/Plan: No acute intervention. Transfuse for Hgb <7 unless symptomatic. Current Visit: Yes Status: Acute Priority: Medium Code(s): D64.81 - ANEMIA DUE TO ANTINEOPLASTIC CHEMOTHERAPY; T45.1X5A - ADVERSE EFFECT OF ANTINEOPLASTIC AND IMMUNOSUP DRUGS, INIT SNOMED Code(s): 453343775 Plan: Doctor attests: I performed a history and physical examination of this patient, developed impr ession and plan of care, discussed with dictator. I agree with dictators note, documented as a scribe. Time with Patient: Greater than 30
--- NOTE | 2020-09-23 12:15 | US ---
EXAMINATION TYPE: US scrotum with doppler. Grayscale and color Doppler Duplex imaging performed of krya mendoza scrotum. DATE OF EXAM: 09/23/2020 COMPARISON: NONE CLINICAL HISTORY: right testicular swelling, no pain. edema rt EXAM MEASUREMENTS: TESTICLES: Right Testicle: 4.1 x 2.4 x 2.4 cm Left Testicle: 3.3 x 2.1 x 2.1 cm cystic area seen inferior .4 x.3 x .5 cm. EPIDIDYMIS HEAD: Right Epididymis: 1.7 x 1.2 x 1.8 cm cystic area 1.2 x .7 x .8 cm Left Epididymis: Not well visualized. Doppler performed to assess for testicular vascularity; good bilateral color flow and waveforms are s een. There is no evidence of testicular torsion. Presence of hydroceles: Yes right Presence of varicoceles: no IMPRESSION: 1. Right-sided hydrocele. 2. Left testicular cyst. 3. Right epididymal cyst.
--- NOTE | 2020-09-23 14:43 | US ---
EXAMINATION TYPE: US gallbladder DATE OF EXAM: 09/23/2020 COMPARISON: NONE CLINICAL HISTORY: fever, CBD stent. pain has pancreatic ca tumor stent put in EXAM MEASUREMENTS: Liver Length: 17.5 cm Gallbladder Wall: .5 cm CBD: .4 cm Right Kidney: 11.3 x 4.6 x 5.3 cm Pancreas: Heterogenous mass in the head measuring 5 cm. Marked Pancreatic duct dilatation is evident . Liver: heterogenous with echogenic foci seen. Gallbladder: Thickened wall echogenic foci seen moving within. Evidence for sonographic Ramesh's sign: no CBD: wnl Right Kidney: No hydronephrosis or masses seen IMPRESSION: 1. Pancreatic head mass with pancreatic ductal dilatation compatible with the patient's pancreatic ca ncer. 2. Debris filled gallbladder.
--- NOTE | 2020-09-23 17:47 | P.HPIM ---
<Simone Mahmood - Last Filed: 09/23/20 17:31> History of Present Illness H&P Date: 09/23/20 History of Presenting Illness: Patient is a 75-year-old male with a past medical history of hypertension and pancreatic cancer and recently began chemotherapy on 09/15/20. He presented to [facility] emergency department on 09/23/20 with a chief complaint of fever of unknown origin as high as 102F at home accompanied by chills. Patient was found to have leukocytosis with WBC count of 16.7 with a left shift and normocytic normochromic anemia with hemoglobin of 7.3, hypokalemia with potassium of 2.5, hyponatremia with sodium of 130, hyperbilirubinemia with bilirubin of 2.8 along with elevated alkaline phosphatase of 1366. Chest x-ray negative for acute cardiopulmonary process revealing minimal subsegmental atelectasis at left lung base without any noted change from previous exams. patient admitted under our services for fever of unknown origin. Upon assessment at bedside patient repor ts in addition to above-mentioned complaints of fever and chills he has also noted a significant increase in size of right testicle over the past 24 hours stating it has now doubled in size. Patient denies having any testicular pain or penile discharge. Patient denies having headache, lightheadedness, dizziness, chest pain, palpitations, shortness of breath, dyspnea with exertion, cough or congestion, abdominal pain, nausea, vomiting, changes in appetite, having any changes in her difficulties with urinary or bowel function, or experiencing any numbness/swelling/weakness/tingling in his extremities. Review of systems: Pertinent positives and negatives as discussed in HPI, a complete review of systems was performed and all other systems are negative. Physical exam: Vital signs reviewed and stable. General: Nontoxic, no distress and appears stated age. Derm: Skin warm and dry, normal coloration for ethnicity. Head: Atraumatic, normocephalic and symmetric. Eyes: EOMs intact, no lid lag, and anicteric sclera Mouth: no lip lesions, mucus membranes moist Cardiovascular: regular rate and rhythm with normal S1S2, no murmur, positive posterior tibial pulses bilaterally, and cap refill < 2 seconds. Lungs: Respirations even, regular, and unlabored on room air. Lungs CTA bilaterally, no rhonchi, no rales, no wheezing, and no accessory muscle usage. GI/:Abdomen soft, nontender to palpation, no guarding, no appreciable organomegaly. Patient with right testicular swelling, no erythema, no penile drainage. Right testicle approximately 3 times size of left testicle at this time. Ext: ROM intact. No gross muscle atrophy, no edema, no contractures Neuro: Speech clear, face symmetrical and CN II-XII grossly intact with no noted focal neuro deficits Psych: Alert and oriented to person, place, time, and situation. Appropriate and pleasant affect. Assessment and Plan of Care: Fever of unknown origin with leukocytosis -leukocytosis with WBC count 16.7 with left shift -Blood cultures and urine cultures to be obtained. -Broad-spectrum antibiotics with Zosyn and vancomycin pending further results. -Tylenol as needed for fever and/or discomfort. -Continue gentle hydration with IV fluids. -Consult hematology/oncology. Testicular swelling -Scrotal ultrasound revealing right-sided hydrocele, left testicular cyst in right epididymal cyst. -Consult urology. Anemia secondary to anti-neoplastic process with chemotherapy -Hemoglobin 7.3, we will continue to monitor closely and transfuse for hemoglobin less than 7. -Hematology/oncology following. Hypokalemia -Potassium 2.5, replaced. -We will continue to monitor closely with repeat a.m. labs and repeat abnormal electrolyte values as needed. Hypertension -Monitor vital signs and continue daily medication regimen with amlodipine. The patient is admitted with an anticipated greater than 2 midnight stay for evaluation of neutropenic fever of unknown origin. CODE STATUS: full code DVT prophylaxis: heparin Discussed with: patient and RN Anticipated discharge date: clinical course to determine Anticipated discharge place: home A total of 45 minutes was spent on the care of this complex patient more than 50% of the time was spent in counseling and care coordination. Past Medical History Past Medical History: Cancer, Hypertension Additional Past Medical History / Comment(s): pancreatic cancer 07/2020, chemo History of Any Multi-Drug Resistant Organisms: None Reported Past Surgical History: No Surgical Hx Reported Additional Past Surgical History / Comment(s): skin cancer removal, pancreatic stent Past Anesthesia/Blood Transfusion Reactions: No Reported Reaction Past Psychological History: No Psychological Hx Reported Smoking Status: Never smoker Past Alcohol Use History: Occasional Past Drug Use History: None Reported - Past Family History Father Additional Family Medical History / Comment(s): pancreatic cancer, [place] X 1, gallstones removed Mother Family Medical History: Cancer, CVA/TIA Additional Family Medical History / Comment(s): Skin cancer, CVA Medications and Allergies Home Medications Medication Instructions Recorded Confirmed Type amLODIPine BESYLATE [Norvasc] 2.5 mg PO BID 07/30/20 09/23/20 History Prochlorperazine [Compazine] 10 mg PO Q6H PRN 09/23/20 09/23/20 History ondansetron HCL [Zofran] 8 mg PO Q8HR PRN 09/23/20 09/23/20 History Allergies Allergy/AdvReac Type Severity Reaction Status Date / Time No Known Allergies Allergy Verified 09/23/20 07:23 Physical Exam Vitals: Vital Signs Temp Pulse Resp BP Pulse Ox 09/23/20 07:00 97.8 F 81 15 107/64 97 09/23/20 06:01 98.2 F 79 15 117/64 98 09/23/20 04:05 100.1 F H 94 12 112/57 99 09/23/20 02:27 101.9 F H 105 H 18 112/57 98 Intake and Output 09/22/20 09/23/20 09/23/20 22:59 06:59 14:59 Other: Weight 60.781 kg Results CBC & Chem 7: 09/23/20 02:38 09/23/20 02:38 Labs: Abnormal Lab Results - Last 24 Hours (Table) 09/23/20 09/23/20 09/23/20 Range/Units 02:38 02:38 02:38 WBC 16.7 H (3.8-10.6) k/uL RBC 2.16 L (4.30-5.90) m/uL Hgb 7.3 L (13.0-17.5) gm/dL Hct 20.5 L (39.0-53.0) % Neutrophils # 15.0 H (1.3-7.7) k/uL Lymphocytes # 0.8 L (1.0-4.8) k/uL Sodium 130 L (137-145) mmol/L Potassium 2.5 L* (3.5-5.1) mmol/L Glucose 181 H (74-99) mg/dL Phosphorus 2.3 L (2.5-4.5) mg/dL Total Bilirubin 2.8 H (0.2-1.3) mg/dL Alkaline Phosphatase 1366 H (38-126) U/L Total Protein 5.7 L (6.3-8.2) g/dL Albumin 2.9 L (3.5-5.0) g/dL Urine Protein 2+ H (Negative) Urine Glucose (UA) 1+ H (Negative) Urine Blood Trace H (Negative) Urine Bilirubin 2+ H (Negative) Urine WBC 11 H (0-5) /hpf Calcium Oxalate Crystal Many H (None) /hpf Urine Mucus Many H (None) /hpf <Carlos Ivey - Last Filed: 09/24/20 13:29> Physical Exam Vitals: Vital Signs Temp Pulse Resp BP Pulse Ox 09/24/20 12:00 98.6 F 71 18 113/65 98 09/24/20 05:00 99.7 F H 92 16 110/55 97 09/23/20 20:00 99 F 96 16 128/69 99 09/23/20 19:58 98 09/23/20 19:50 96 16 Intake and Output 09/23/20 09/24/20 09/24/20 22:59 06:59 14:59 Intake Total 1850 Balance 1850 Intake: Intake, IV Titration 1350 Amount Piperacillin-Tazobactam 3 100 .375 gm In Sodium Chloride 0.9% 100 ml @ 200 mls/hr IVPB ONCE ONE Rx#:[id number] Sodium Chloride 0.9% 1, 1000 000 ml @ 130 mls/hr IV . Q7H42M [facility] Rx#:[id number] Vancomycin 1,250 mg In 250 Sodium Chloride 0.9% 250 ml @ 125 mls/hr IVPB Q12HR [facility] Rx#:[id number] Oral 500 Other: Voiding Method Toilet Toilet # Voids 3 Weight 60.781 kg Results CBC & Chem 7: 09/24/20 06:43 09/24/20 06:43 Labs: Abnormal Lab Results - Last 24 Hours (Table) 09/24/20 09/24/20 09/24/20 Range/Units 06:43 06:43 08:53 WBC 12.2 H (3.8-10.6) k/uL RBC 1.79 L (4.30-5.90) m/uL Hgb 5.7 L* D (13.0-17.5) gm/dL Hct 17.5 L* (39.0-53.0) % Sodium 134 L (137-145) mmol/L Potassium 3.0 L (3.5-5.1) mmol/L Glucose 116 H (74-99) mg/dL Calcium 8.3 L (8.4-10.2) mg/dL Crossmatch See Detail Microbiology - Last 24 Hours (Table) 09/23/20 02:38 Blood Culture - Preliminary Blood No Growth after 24 hours 09/23/20 02:38 Urine Culture - Preliminary Urine,Voided Assessment and Plan Assessment: Patient was seen, evaluated, and examined by me on the day of admission. He presented with a fever of unclear etiology. Workup in process. Blood culture sent and pending. Otherwise no clear source of infection. May be attributed to underlying malignancy.
[2020-09-23] MEDS: PIPERACILLIN-TAZOBACTAM 3.375 GM in SODIUM CHLORIDE 0.9% 100 ML IVPB SCH ×2 (17:57→22:29)
[2020-09-23] MEDS: amLODIPine 2.5 MG TAB PO SCH (20:52)
[2020-09-23] MEDS: VANCOMYCIN 1,250 MG in SODIUM CHLORIDE 0.9% 250 ML IVPB SCH (20:53)
[2020-09-23] MEDS: HEPARIN SODIUM,PORCINE/PF 5,000 UNIT/0.5 ML SYRINGE SQ SCH (23:44)
[2020-09-24] MEDS: SODIUM CHLORIDE 0.9% 1,000 ML IV SCH ×2 (03:12→09:53)
[2020-09-24] MEDS: PIPERACILLIN-TAZOBACTAM 3.375 GM in SODIUM CHLORIDE 0.9% 100 ML IVPB SCH ×3 (05:40→22:36)
--- NOTE | 2020-09-24 06:15 | P.GSCN ---
History of Present Illness Consult date: 09/22/20 History of present illness: 75 yo male with ahistory of pancreatic cancer undergoing treatment who came to the hospital with a fever. He was evaluated and has a new onset right teticular swelling that I was asked toevaluate. the patient states that this has been present for about 3 weeks. It is not painful He did not injure this. there has been no voiding issues. He has not had a hernia or signs of one. Review of Systems All systems: negative - Constitutional Denies fever, Denies weight loss - EENT Eyes: denies blurred vision Ears, nose, mouth and throat: Denies dysphagia - Cardiovascular Denies chest pain, Denies shortness of breath - Respiratory Denies cough, Denies 7 - Gastrointestinal Reports as per HPI - Genitourinary Denies dysuria, Denies hematuria - Integumentary Denies rash, Denies unusual bruising - Neurological Denies headaches, Denies syncope - Hematologic/Lymphatic Denies easy bleeding, Denies easy bruising Past Medical History Past Medical History: Cancer, Hypertension Additional Past Medical History / Comment(s): pancreatic cancer 07/2020, chemo History of Any Multi-Drug Resistant Organisms: None Reported Past Surgical History: No Surgical Hx Reported Additional Past Surgical History / Comment(s): skin cancer removal, pancreatic stent Past Anesthesia/Blood Transfusion Reactions: No Reported Reaction Past Psychological History: No Psychological Hx Reported Additional Psychological History / Comment(s): Pt resides with his spouse. He is independent. Smoking Status: Never smoker Past Alcohol Use History: Occasional Past Drug Use History: None Reported - Past Family History Father Additional Family Medical History / Comment(s): pancreatic cancer, [place] X 1, gallstones removed Mother Family Medical History: Cancer, CVA/TIA Additional Family Medical History / Comment(s): Skin cancer, CVA Medications and Allergies Home Medications Medication Instructions Recorded Confirmed Type amLODIPine BESYLATE [Norvasc] 2.5 mg PO BID 07/30/20 09/23/20 History Prochlorperazine [Compazine] 10 mg PO Q6H PRN 09/23/20 09/23/20 History ondansetron HCL [Zofran] 8 mg PO Q8HR PRN 09/23/20 09/23/20 History Allergies Allergy/AdvReac Type Severity Reaction Status Date / Time No Known Allergies Allergy Verified 09/23/20 07:23 Surgical - Exam Vital Signs Temp Pulse Resp BP Pulse Ox 101.9 F H 105 H 18 112/57 98 09/23/20 02:27 09/23/20 02:27 09/23/20 02:27 09/23/20 02:27 09/23/20 02:27 - General well developed, well nourished - Eyes PERRL - ENT no hearing loss - Neck trachea midline - Respiratory normal expansion, normal respiratory effort - Cardiovascular Rhythm: regular - Abdomen Abdomen: soft, non tender - Genitourinary right fluid, transilluminates, testicle not palpable. normal left testis. normal penis with no external lesions, testicles present - Neurologic normal coordination, normal sensation - Musculoskeletal normal posture - Psychiatric oriented to time, oriented to person, oriented to place, speech is normal, memory intact Results - Labs 09/23/20 02:38 09/23/20 02:38 Microbiology - Last 24 Hours (Table) 09/23/20 02:38 Blood Culture - Preliminary Blood No Growth after 24 hours 09/23/20 02:38 Urine Culture - Preliminary Urine,Voided Assessment and Plan Assessment: Impression: pancreatic cancer, fuo, probable right hydrocele Plan> pending scrotal us.
--- NOTE | 2020-09-24 06:17 | P.PN ---
Subjective Progress Note Date: 09/24/20 the patient was seen for right testis swelling. AN us identified a hydrocele, bilateral epididymal cysts and normal testes. This can be addressed electively in the future after treatment of his pancreatic cancer this has been discussed with the patient Objective - Vital Signs Vital signs: Vital Signs Temp 99.7 F H 09/24/20 05:00 Pulse 92 09/24/20 05:00 Resp 16 09/24/20 05:00 BP 110/55 09/24/20 05:00 Pulse Ox 97 09/24/20 05:00 Intake & Output 09/23/20 09/23/20 09/24/20 06:59 18:59 06:59 Intake Total 1850 Balance 1850 Weight 60.781 kg 60.781 kg Intake: Intake, IV Titration 1350 Amount Piperacillin-Tazobactam 3 100 .375 gm In Sodium Chloride 0.9% 100 ml @ 200 mls/hr IVPB ONCE ONE Rx#:[id number] Sodium Chloride 0.9% 1, 1000 000 ml @ 130 mls/hr IV . Q7H42M [facility] Rx#:[id number] Vancomycin 1,250 mg In 250 Sodium Chloride 0.9% 250 ml @ 125 mls/hr IVPB Q12HR [facility] Rx#:[id number] Oral 500 Other: Voiding Method Toilet # Voids 3 - Labs CBC & Chem 7: 09/23/20 02:38 09/23/20 02:38 Labs: Microbiology - Last 24 Hours (Table) 09/23/20 02:38 Blood Culture - Preliminary Blood No Growth after 24 hours 09/23/20 02:38 Urine Culture - Preliminary Urine,Voided
[2020-09-24 07:00] LABS: Hypochromasia Slight; MCH 32.1 pg (25.0-35.0); MCHC 32.8 g/dL (31.0-37.0); MCV 97.8 fL (80.0-100.0); Mean Platelet Volume 9.3; Platelet Count 218 k/uL (150-450); Poikilocytosis Moderate; RBC 1.79 m/uL (4.30-5.90); RDW 14.6 % (11.5-15.5); WBC 12.2 k/uL (3.8-10.6)
[2020-09-24 07:16] LABS: HGB 5.7 gm/dL (13.0-17.5)
[2020-09-24 07:17] LABS: HCT 17.5 % (39.0-53.0)
[2020-09-24 07:18] LABS: African American GFR (CKD) >90 (>60 ml/min/1.73 sqM); Anion Gap 3 mmol/L; Blood Urea Nitrogen 10 mg/dL (9-20); Calcium 8.3 mg/dL (8.4-10.2); Carbon Dioxide 26 mmol/L (22-30); Chloride 105 mmol/L (98-107); Glucose 116 mg/dL (74-99); Magnesium 1.9 mg/dL (1.6-2.3); Non-African American GFR(CKD) >90 (>60 ml/min/1.73 sqM); Sodium 134 mmol/L (137-145)
[2020-09-24] MEDS ORDERED: Potassium Replacement Protocol 1 EACH MISC MISCELLANE PRN (07:57)
[2020-09-24] MEDS: PANTOPRAZOLE 40 MG/10 ML VIAL IV SCH (08:17)
[2020-09-24] MEDS: HEPARIN SODIUM,PORCINE/PF 5,000 UNIT/0.5 ML SYRINGE SQ SCH ×3 (08:18→22:45)
[2020-09-24] MEDS: POTASSIUM CHLORIDE ER 20 MEQ TAB.ER PO SCH ×4 (08:18→22:36)
[2020-09-24] MEDS: amLODIPine 2.5 MG TAB PO SCH ×2 (08:19→20:26)
[2020-09-24] MEDS: VANCOMYCIN 1,250 MG in SODIUM CHLORIDE 0.9% 250 ML IVPB SCH ×2 (08:24→20:29)
[2020-09-24] MEDS ORDERED: ACETAMINOPHEN TAB 325 MG TAB PO PRN (09:11)
--- NOTE | 2020-09-24 14:08 | P.PN ---
Subjective Progress Note Date: 09/24/20 History of Presenting Illness: Patient is a 75-year-old male with a past medical history of hypertension and pancreatic cancer and recently began chemotherapy on 09/15/20. He presented to the emergency department on 09/23/20 with a chief complaint of fever of unknown origin as high as 102F at home accompanied by chills. Patient was found to have leukocytosis with WBC count of 16.7 with a left shift and normocytic normochromic anemia with hemoglobin of 7.3, hypokalemia with potassium of 2.5, hyponatremia with sodium of 130, hyperbilirubinemia with bilirubin of 2.8 along with elevated alkaline phosphatase of 1366. Chest x-ray negative for acute cardiopulmonary process revealing minimal subsegmental atelectasis at left lung base without any noted change from previous exams. Patient also reported right- sided testicular swelling overnight, right testicle found to be approximately 3 times the size of left testicle consult was placed for urology and scrotal ultrasound was completed revealing right-sided hydrocele. Physical exam: Patient was seen and fully evaluated at the bedside this morning. He was noted to have 1.6 L drop in hemoglobin as morning hemoglobin was 5.7 and order was placed for transfusion of 2 units PRBCs. He remained hypokalemic with potassium of 3.0, also replaced. Upon assessment patient did report diffuse abdominal discomfort. He states it's not a pain but definitely uncomfortable "like I'd rather not have anyone touch it". Patient unable to localize pain states it's diffuse throughout abdomen. He denies having any other complaints including chest pain, palpitations, shortness of breath, nausea, vomiting, hematemesis, hematuria, melena, or hematochezia. Patient had low grade temp of 99.7F over past 24 hours and otherwise vital signs stable. CT abdomen and pelvis with contrast to be completed. Vital signs reviewed and stable. General: Nontoxic, no distress and appears stated age. Derm: Skin warm and dry, normal coloration for ethnicity. Head: Atraumatic, normocephalic and symmetric. Eyes: EOMs intact, no lid lag, and anicteric sclera Mouth: no lip lesions, mucus membranes moist Cardiovascular: regular rate and rhythm with normal S1S2, no murmur, positive posterior tibial pulses bilaterally, and cap refill < 2 seconds. Lungs: Respirations even, regular, and unlabored on room air. Lungs CTA bilaterally, no rhonchi, no rales, no wheezing, and no accessory muscle usage. GI/:Abdomen soft, diffuse abdominal tenderness upon palpation, no guarding, no appreciable organomegaly. Patient with right testicular swelling, no erythema, no penile drainage. Right testicle approximately 3 times size of left testicle at this time. Ext: ROM intact. No gross muscle atrophy, no edema, no contractures Neuro: Speech clear, face symmetrical and CN II-XII grossly intact with no noted focal neuro deficits Psych: Alert and oriented to person, place, time, and situation. Appropriate and pleasant affect. Assessment and Plan of Care: Fever of unknown origin with leukocytosis -leukocytosis with WBC count 16.7 with left shift, improving with WBC is 12.2 this morning. -Blood cultures showing no growth after 24 hours and urine pending. -Continue Broad-spectrum antibiotics with Zosyn and vancomycin pending further results. -Tylenol as needed for fever and/or discomfort. -Continue gentle hydration with IV fluids. -Consult hematology/oncology. Testicular swelling -Scrotal ultrasound revealing right-sided hydrocele, left testicular cyst in right epididymal cyst. -Neurology following, appreciate further recommendations. Anemia secondary to anti-neoplastic process with chemotherapy -Hemoglobin decreased to 5.7 this morning, order was placed for transfusion of 2 units PRBCs. -Patient also complaining of new onset diffuse abdominal discomfort, CT abdomen and pelvis with IV contrast to be obtained. -Hematology/oncology following. Hypokalemia -Potassium 3.0, replaced. -We will continue to monitor closely with repeat a.m. labs and repeat abnormal electrolyte values as needed. Hypertension -Monitor vital signs and continue daily medication regimen with amlodipine. The patient is admitted with an anticipated greater than 2 midnight stay for evaluation of neutropenic fever of unknown origin. CODE STATUS: full code DVT prophylaxis: heparin Discussed with: patient and RN Anticipated discharge date: clinical course to determine Anticipated discharge place: home A total of 45 minutes was spent on the care of this complex patient more than 50% of the time was spent in counseling and care coordination. Objective - Vital Signs Vital signs: Vital Signs Temp 99.7 F H 09/24/20 05:00 Pulse 92 09/24/20 05:00 Resp 16 09/24/20 05:00 BP 110/55 09/24/20 05:00 Pulse Ox 97 09/24/20 05:00 Intake & Output 09/23/20 09/24/20 09/24/20 18:59 06:59 18:59 Intake Total 1850 Balance 1850 Weight 60.781 kg Intake: Intake, IV Titration 1350 Amount Piperacillin-Tazobactam 3 100 .375 gm In Sodium Chloride 0.9% 100 ml @ 200 mls/hr IVPB ONCE ONE Rx#:[id number] Sodium Chloride 0.9% 1, 1000 000 ml @ 130 mls/hr IV . Q7H42M [facility] Rx#:[id number] Vancomycin 1,250 mg In 250 Sodium Chloride 0.9% 250 ml @ 125 mls/hr IVPB Q12HR [facility] Rx#:[id number] Oral 500 Other: Voiding Method Toilet Toilet # Voids 3 - Labs CBC & Chem 7: 09/24/20 06:43 09/24/20 06:43 Labs: Abnormal Lab Results - Last 24 Hours (Table) 09/24/20 09/24/20 09/24/20 Range/Units 06:43 06:43 08:53 WBC 12.2 H (3.8-10.6) k/uL RBC 1.79 L (4.30-5.90) m/uL Hgb 5.7 L* D (13.0-17.5) gm/dL Hct 17.5 L* (39.0-53.0) % Sodium 134 L (137-145) mmol/L Potassium 3.0 L (3.5-5.1) mmol/L Glucose 116 H (74-99) mg/dL Calcium 8.3 L (8.4-10.2) mg/dL Crossmatch See Detail Microbiology - Last 24 Hours (Table) 09/23/20 02:38 Blood Culture - Preliminary Blood No Growth after 24 hours 09/23/20 02:38 Urine Culture - Preliminary Urine,Voided
--- NOTE | 2020-09-24 15:40 | P.PN ---
Subjective Progress Note Date: 09/24/20 Principal diagnosis: Fever, pancreatic adenocarcinoma In f/u pt reports feeling better then on admit, no fever, he has early satiety, US does not show any stent blockage, Hgb is 5.7 today. Objective - Vital Signs Vital signs: Vital Signs Temp 99.7 F H 09/24/20 05:00 Pulse 92 09/24/20 05:00 Resp 16 09/24/20 05:00 BP 110/55 09/24/20 05:00 Pulse Ox 97 09/24/20 05:00 Intake & Output 09/23/20 09/24/20 09/24/20 18:59 06:59 18:59 Intake Total 1850 Balance 1850 Weight 60.781 kg Intake: Intake, IV Titration 1350 Amount Piperacillin-Tazobactam 3 100 .375 gm In Sodium Chloride 0.9% 100 ml @ 200 mls/hr IVPB ONCE ONE Rx#:[id number] Sodium Chloride 0.9% 1, 1000 000 ml @ 130 mls/hr IV . Q7H42M [facility] Rx#:[id number] Vancomycin 1,250 mg In 250 Sodium Chloride 0.9% 250 ml @ 125 mls/hr IVPB Q12HR [facility] Rx#:[id number] Oral 500 Other: Voiding Method Toilet Toilet # Voids 3 - Constitutional General appearance: Present: average body habitus, cooperative, no acute distress - EENT Eyes: Present: EOMI, scleral icterus ENT: Present: hearing grossly normal, normal oropharynx - Respiratory Respiratory: bilateral: CTA - Cardiovascular Rhythm: regular Heart sounds: normal: S1, S2 Abnormal Heart Sounds: Absent: systolic murmur, diastolic murmur, rub, S3 Gallop, S4 Gallop, click, other - Peripheral edema leg Peripheral Edema: bilateral: None - Gastrointestinal General gastrointestinal: Present: normal bowel sounds, soft - Neurologic Neurologic: Present: CNII-XII intact - Musculoskeletal Musculoskeletal: Present: strength equal bilaterally - Psychiatric Psychiatric: Present: A&O x's 3, appropriate affect, intact judgment & insight - Labs CBC & Chem 7: 09/24/20 06:43 09/24/20 06:43 Labs: Abnormal Lab Results - Last 24 Hours (Table) 09/24/20 09/24/20 09/24/20 Range/Units 06:43 06:43 08:53 WBC 12.2 H (3.8-10.6) k/uL RBC 1.79 L (4.30-5.90) m/uL Hgb 5.7 L* D (13.0-17.5) gm/dL Hct 17.5 L* (39.0-53.0) % Sodium 134 L (137-145) mmol/L Potassium 3.0 L (3.5-5.1) mmol/L Glucose 116 H (74-99) mg/dL Calcium 8.3 L (8.4-10.2) mg/dL Crossmatch See Detail Microbiology - Last 24 Hours (Table) 09/23/20 02:38 Blood Culture - Preliminary Blood No Growth after 24 hours 09/23/20 02:38 Urine Culture - Preliminary Urine,Voided - Imaging and Cardiology US - abdomen: report reviewed Assessment and Plan (1) Pancreatic adenocarcinoma Narrative/Plan: S/P 1st cycle of chemo through [facility], Dr. Alber Coffman, contacted her at pt request, she was updated in his admit, would like to be updated-[facility] cell [phone]. She gave FOLFOX-did not give irinotecan 2/2 liver enzymes. Current Visit: Yes Status: Acute Priority: High Code(s): C25.9 - MALIGNANT NEOPLASM OF PANCREAS, UNSPECIFIED SNOMED Code(s): 909972957 (2) Fever Narrative/Plan: Pancultures pending. Vanco added. Blood cult from port, only after abx started. US of the liver/gallbladder negative for blockage of CBD stent Hydrocele being addressed by Urology Current Visit: Yes Status: Acute Priority: High Code(s): R50.9 - FEVER, UNSPECIFIED SNOMED Code(s): 457846851 (3) Leukocytosis Narrative/Plan: Pt denies administration of GCSF post chemo. ANC elevated, stable, slightly improved today, infection work up continues. Current Visit: Yes Status: Acute Priority: High Code(s): D72.829 - ELEVATED WHITE BLOOD CELL COUNT, UNSPECIFIED SNOMED Code(s): 886939244 (4) Antineoplastic chemotherapy induced anemia Narrative/Plan: No acute intervention. Transfuse for Hgb <7 unless symptomatic. 2 units today for Hgb 5.7 Current Visit: Yes Status: Acute Priority: Medium Code(s): D64.81 - ANEMIA DUE TO ANTINEOPLASTIC CHEMOTHERAPY; T45.1X5A - ADVERSE EFFECT OF ANTINEOPLASTIC AND IMMUNOSUP DRUGS, INIT SNOMED Code(s): 671761388
[2020-09-24] MEDS: LIPASE 5,000/PROTEASE 17,000/AMYLASE 24,000 PO SCH (17:56)
[2020-09-25 05:34] VITALS: RESP 20
[2020-09-25] MEDS: PIPERACILLIN-TAZOBACTAM 3.375 GM in SODIUM CHLORIDE 0.9% 100 ML IVPB SCH ×2 (05:45→13:28)
[2020-09-25] MEDS: SODIUM CHLORIDE 0.9% 1,000 ML IV SCH (05:46)
[2020-09-25 07:33] LABS: Basophils # (A) 0.1 k/uL (0-0.2); Basophils % (A) 1 %; Eosinophils % (A) 0 %; HCT 24.6 % (39.0-53.0); Hypochromasia Slight; Lymphocytes # (A) 1.3 k/uL (1.0-4.8); Lymphocytes % (A) 11 %; MCH 31.8 pg (25.0-35.0); MCHC 33.5 g/dL (31.0-37.0); MCV 94.8 fL (80.0-100.0); Mean Platelet Volume 8.3; Monocytes # (A) 0.5 k/uL (0-1.0); Monocytes % (A) 4 %; Neutrophils # (A) 9.9 k/uL (1.3-7.7); Neutrophils % (A) 82 %; Platelet Count 259 k/uL (150-450); Poikilocytosis Moderate; RBC 2.59 m/uL (4.30-5.90); RDW 15.9 % (11.5-15.5); WBC 12.1 k/uL (3.8-10.6)
[2020-09-25 07:34] LABS: HGB 8.2 gm/dL (13.0-17.5)
[2020-09-25 07:35] LABS: ALT 27 U/L (4-49); AST 30 U/L (17-59); African American GFR (CKD) >90 (>60 ml/min/1.73 sqM); Albumin 2.3 g/dL (3.5-5.0); Albumin/Globulin Ratio 0.9; Alkaline Phosphatase 960 U/L (38-126); Anion Gap 6 mmol/L; Blood Urea Nitrogen 10 mg/dL (9-20); Calcium 8.6 mg/dL (8.4-10.2); Carbon Dioxide 22 mmol/L (22-30); Chloride 105 mmol/L (98-107); Globulin 2.7 g/dL; Glucose 109 mg/dL (74-99); Magnesium 1.9 mg/dL (1.6-2.3); Non-African American GFR(CKD) >90 (>60 ml/min/1.73 sqM); Potassium 3.6 mmol/L (3.5-5.1); Sodium 133 mmol/L (137-145); Total Bilirubin 2.7 mg/dL (0.2-1.3)
[2020-09-25] MEDS ORDERED: VANCOMYCIN TROUGH DUE 1 EACH MISC MISCELLANE ONE (08:00)
[2020-09-25] MEDS: PANTOPRAZOLE 40 MG/10 ML VIAL IV SCH (08:20)
[2020-09-25] MEDS: HEPARIN SODIUM,PORCINE/PF 5,000 UNIT/0.5 ML SYRINGE SQ SCH (08:21)
[2020-09-25] MEDS: amLODIPine 2.5 MG TAB PO SCH (08:22)
[2020-09-25] MEDS: LIPASE 5,000/PROTEASE 17,000/AMYLASE 24,000 PO SCH ×2 (08:22→13:12)
--- NOTE | 2020-09-25 08:29 | CT ---
EXAMINATION TYPE: CT abdomen pelvis w con DATE OF EXAM: 09/24/2020 COMPARISON: 07/30/2020 INDICATION: Abdominal pain and anemia. DLP: 1154 mGycm, Automated exposure control for dose reduction was used. CONTRAST: 100ml mL of Isovue 300. Study performed without Oral Contrast TECHNIQUE: Axial images were obtained from above the diaphragm to the pubic rami in the axial plane a t 5 mm thick sections. Reconstructed images are reviewed on the computer in the coronal plane. FINDINGS: Limited CT sections are obtained the lung bases. Mild streak atelectasis is present.. CT ABDOMEN: Small amount of ascites is present. Liver: Biliary air is present. Bile duct stent is evident. Spleen: Calcified splenic granulomas present. Pancreas: Pancreatic duct is markedly dilated. There is a hypodensity within the posterior pancreas m easuring 2.3 cm.. Consider pseudocyst formation. This appears to be new from comparison. Adrenal glands: The adrenal glands are normal. Gallbladder: Distended. Some air is within the gallbladder. Kidneys: No masses are evident. No hydronephrosis is present. There is a 4.3 cm cyst on the left ki dney. Delayed images were obtained through the kidneys, which remain unremarkable. Aorta: Vascular calcification is within the aorta. Inferior vena cava: Normal. CT PELVIS: There are some fluid-filled loops of bowel. Air is present in the colon. No dilated suspicious bowel loops are evident. This study is lateral contrast limiting bowel evaluation. Appendix: Normal as visualized. Urinary bladder: Nodular density appears to be within the urinary bladder. This could be upper impres eliseo from the prostate. Internal mass and direct extension from prostate should be considered. Genitourinary structures: Prostate is prominent and contains multiple scattered small calcifications. Osseous structures: There is a sclerotic area within the medial right iliac wing. Series 3 image 52. A few scattered ill-defined sclerotic areas are within the left medial iliac wing. Degenerative lopez es are within the lower lumbar spine disc spaces. There are small sclerotic areas within vertebral le vels, example series 3 image 33, series 3 image 23. These appear to be new and are suspicious for met astasis. IMPRESSIONS: 1. Mild ascites throughout the abdomen and pelvis. 2. Dilated pancreatic duct. A new hypodensities in the posterior body of pancreas. Pseudocyst formati on and neoplasm within the differential. 3. Enlarged prostate. This may have inferior impression on the urinary bladder. Urinary bladder may h ave an internal mass. Additional workup is recommended. Prostate neoplasm should be considered. 4. Interval development of sclerotic metastases discussed above
[2020-09-25] MEDS: VANCOMYCIN 1,250 MG in SODIUM CHLORIDE 0.9% 250 ML IVPB SCH (08:30)
[2020-09-25 11:20] VITALS: BP 121/67; PULSE 78; TEMP 98.5
--- NOTE | 2020-09-25 13:04 | P.PN ---
Subjective Progress Note Date: 09/25/20 History of Presenting Illness: Patient is a 75-year-old male with a past medical history of hypertension and pancreatic cancer and recently began chemotherapy on 09/15/20. He presented to the emergency department on 09/23/20 with a chief complaint of fever of unknown origin as high as 102F at home accompanied by chills. Patient was found to have leukocytosis with WBC count of 16.7 with a left shift and normocytic normochromic anemia with hemoglobin of 7.3, hypokalemia with potassium of 2.5, hyponatremia with sodium of 130, hyperbilirubinemia with bilirubin of 2.8 along with elevated alkaline phosphatase of 1366. Chest x-ray negative for acute cardiopulmonary process revealing minimal subsegmental atelectasis at left lung base without any noted change from previous exams. Patient also reported right- sided testicular swelling overnight, right testicle found to be approximately 3 times the size of left testicle consult was placed for urology and scrotal ultrasound was completed revealing right-sided hydrocele. Physical exam: Patient was seen and fully evaluated at the bedside this morning. He was noted to have 1.6 L drop in hemoglobin as morning hemoglobin was 5.7 and order was placed for transfusion of 2 units PRBCs. He remained hypokalemic with potassium of 3.0, also replaced. Upon assessment patient did report diffuse abdominal discomfort. He states it's not a pain but definitely uncomfortable "like I'd rather not have anyone touch it". Patient unable to localize pain states it's diffuse throughout abdomen. He denies having any other complaints including chest pain, palpitations, shortness of breath, nausea, vomiting, hematemesis, hematuria, melena, or hematochezia. Patient had low grade temp of 99.7F over past 24 hours and otherwise vital signs stable. CT abdomen and pelvis with contrast to be completed. Vital signs reviewed and stable. General: Nontoxic, no distress and appears stated age. Derm: Skin warm and dry, normal coloration for ethnicity. Head: Atraumatic, normocephalic and symmetric. Eyes: EOMs intact, no lid lag, and anicteric sclera Mouth: no lip lesions, mucus membranes moist Cardiovascular: regular rate and rhythm with normal S1S2, no murmur, positive posterior tibial pulses bilaterally, and cap refill < 2 seconds. Lungs: Respirations even, regular, and unlabored on room air. Lungs CTA bilaterally, no rhonchi, no rales, no wheezing, and no accessory muscle usage. GI/:Abdomen soft, diffuse abdominal tenderness upon palpation, no guarding, no appreciable organomegaly. Patient with right testicular swelling, no erythema, no penile drainage. Right testicle approximately 3 times size of left testicle at this time. Ext: ROM intact. No gross muscle atrophy, no edema, no contractures Neuro: Speech clear, face symmetrical and CN II-XII grossly intact with no noted focal neuro deficits Psych: Alert and oriented to person, place, time, and situation. Appropriate and pleasant affect. Assessment and Plan of Care: Fever of unknown origin with leukocytosis -leukocytosis with WBC count 16.7 with left shift, improving with WBC is 12.2 this morning. -Blood cultures showing no growth after 24 hours and urine pending. -Continue Broad-spectrum antibiotics with Zosyn and vancomycin pending further results. -Tylenol as needed for fever and/or discomfort. -Continue gentle hydration with IV fluids. -Consult hematology/oncology. Testicular swelling -Scrotal ultrasound revealing right-sided hydrocele, left testicular cyst in right epididymal cyst. -Neurology following, appreciate further recommendations. Anemia secondary to anti-neoplastic process with chemotherapy -Hemoglobin decreased to 5.7 this morning, order was placed for transfusion of 2 units PRBCs. -Patient also complaining of new onset diffuse abdominal discomfort, CT abdomen and pelvis with IV contrast to be obtained. -Hematology/oncology following. Hypokalemia -Potassium 3.0, replaced. -We will continue to monitor closely with repeat a.m. labs and repeat abnormal electrolyte values as needed. Hypertension -Monitor vital signs and continue daily medication regimen with amlodipine. The patient is admitted with an anticipated greater than 2 midnight stay for evaluation of neutropenic fever of unknown origin. CODE STATUS: full code DVT prophylaxis: heparin Discussed with: patient and RN Anticipated discharge date: clinical course to determine Anticipated discharge place: home A total of 45 minutes was spent on the care of this complex patient more than 50% of the time was spent in counseling and care coordination. Objective - Vital Signs Vital signs: Vital Signs Temp 98.5 F 09/25/20 11:19 Pulse 78 09/25/20 11:19 Resp 20 09/25/20 11:19 BP 121/67 09/25/20 11:19 Pulse Ox 97 09/25/20 11:19 Intake & Output 09/24/20 09/25/20 09/25/20 18:59 06:59 18:59 Intake Total 2049 1959 Balance 2049 1959 Intake: Intake, IV Titration 1120 1050 Amount Piperacillin-Tazobactam 3 200 200 .375 gm In Sodium Chloride 0.9% 100 ml @ 25 mls/hr IVPB Q8H [facility] Rx#: [id number] Sodium Chloride 0.9% 1, 520 000 ml @ 130 mls/hr IV . Q7H42M [facility] Rx#:[id number] Sodium Chloride 0.9% 1, 400 600 000 ml @ 50 mls/hr IV . Q20H [facility] Rx#:[id number] Vancomycin 1,250 mg In 250 Sodium Chloride 0.9% 250 ml @ 125 mls/hr IVPB Q12HR [facility] Rx#:[id number] Oral 600 Blood Product 930 310 Rc As-1 Unit 0 310 [id number] Rc As-1 Unit 310 [id number] Other: Voiding Method Toilet Toilet Toilet # Voids 1 4 # Bowel Movements 1 - Labs CBC & Chem 7: 09/25/20 06:58 09/25/20 06:58 Labs: Abnormal Lab Results - Last 24 Hours (Table) 09/24/20 09/25/20 09/25/20 Range/Units 08:53 06:58 06:58 WBC 12.1 H (3.8-10.6) k/uL RBC 2.59 L (4.30-5.90) m/uL Hgb 8.2 L D (13.0-17.5) gm/dL Hct 24.6 L (39.0-53.0) % RDW 15.9 H (11.5-15.5) % Neutrophils # 9.9 H (1.3-7.7) k/uL Sodium 133 L (137-145) mmol/L Glucose 109 H (74-99) mg/dL Total Bilirubin 2.7 H (0.2-1.3) mg/dL Alkaline Phosphatase 960 H (38-126) U/L Total Protein 5.0 L (6.3-8.2) g/dL Albumin 2.3 L (3.5-5.0) g/dL Crossmatch See Detail Microbiology - Last 24 Hours (Table) 09/23/20 02:38 Blood Culture - Preliminary Blood No Growth after 48 hours 09/23/20 02:38 Urine Culture - Final Urine,Voided 09/23/20 11:24 Blood Culture - Preliminary Blood No Growth after 24 hours
--- NOTE | 2020-09-25 14:50 | P.DS ---
Providers Date of admission: 09/24/20 13:57 Expected date of discharge: 09/25/20 Attending physician: Steven Clark MD Consults: 09/23/20 04:46 Consult Physician Routine Consulting Provider: Malik Baer Consult Reason/Comments: known Do you want consulting provider notified?: Yes 09/23/20 09:40 Consult Physician Routine Consulting Provider: Yuri Aaron Consult Reason/Comments: right testicular swelling Do you want consulting provider notified?: Yes Primary care physician: Ángel Galvin MD Hospital Course: Discharge Diagnosis: Fever of unknown origin status post chemotherapy treatment, resolved Leukocytosis Testicular swelling Pancreatic adenocarcinoma, concerns for possible metastasis Anemia secondary to anti-neoplastic process with chemotherapy Hypokalemia Hypertension Enlarged prostate Hospital Course: Patient is a 75-year-old male with a past medical history of hypertension and pancreatic cancer and recently began chemotherapy on 09/15/20. He presented to the emergency department on 09/23/20 with a chief complaint of fever of unknown origin as high as 102F at home accompanied by chills. Patient was found to have leukocytosis with WBC count of 16.7 with a left shift and normocytic normochromic anemia with hemoglobin of 7.3, hypokalemia with potassium of 2.5, hyponatremia with sodium of 130, hyperbilirubinemia with bilirubin of 2.8 along with elevated alkaline phosphatase of 1366. Covid 19 PCR negative. Chest x-ray negative for acute cardiopulmonary process revealing minimal subsegmental atelectasis at left lung base without any noted change from previous exams. Patient also reported right-sided testicular swelling overnight, right testicle found to be approximately 3 times the size of left testicle consult was placed for urology and scrotal ultrasound was completed revealing right-sided hydrocele. Urinalysis negative for infection. CT abdomen and pelvis with contrast to be completed revealing sclerotic areas within the medial right and left iliac wings as well as within vertebral levels throughout lower lumbar spine suspicious for possible metastasis, mild ascites throughout abdomen and pelvis, dilated pancreatic duct with a new hypodensity in the posterior body of the pancreas, enlarged prostate, possible internal urinary bladder mass. Patient did have significant anemia during hospitalization with hemoglobin of 5.7 resulting in transfusion of 2 units PRBCs. Hemoglobin now stable at 8.2. Patient's condition has improved and he has been afebrile and free from any reports of pain or discomfort for greater than 24 hours. Urine culture negative. Blood culture showing no growth after 48 hours. Broad-spectrum antibiotics discontinued at this time. Discussed with oncology team whom is in agreement with plan for discharge and no further recommendations at this time. Patient is stable for discharge home and will need to follow up outpatient with his PCP for posthospitalization follow-up, Urologist for further evaluation of right testicular hydrocele as well as for needed prostate examination secondary to CT findings of enlarged prostate along with possible internal urinary bladder mass. He will also need to continue to follow with oncology for management of his pancreatic cancer as well as further workup/testing for finding suspicious of metastasis secondary to sclerotic areas within the medial right and left iliac wings as well as within vertebral levels throughout lower lumbar spine. Physical exam: Vital signs reviewed and stable. General: Nontoxic, no distress and appears stated age. Derm: Skin warm and dry, normal coloration for ethnicity. Head: Atraumatic, normocephalic and symmetric. Eyes: EOMs intact, no lid lag, and anicteric sclera Mouth: no lip lesions, mucus membranes moist Cardiovascular: regular rate and rhythm with normal S1S2, no murmur, positive posterior tibial pulses bilaterally, and cap refill < 2 seconds. Lungs: Respirations even, regular, and unlabored on room air. Lungs CTA bilaterally, no rhonchi, no rales, no wheezing, and no accessory muscle usage. GI/:Abdomen soft, diffuse abdominal tenderness upon palpation, no guarding, no appreciable organomegaly. Patient with right testicular swelling, no erythema, n o penile drainage. Right testicle approximately 2-3 times size of left testicle at this time. Ext: ROM intact. No gross muscle atrophy, no edema, no contractures Neuro: Speech clear, face symmetrical and CN II-XII grossly intact with no noted focal neuro deficits Psych: Alert and oriented to person, place, time, and situation. Appropriate and pleasant affect. A total of 45 minutes of time were spent preparing this complex discharge summary. Patient Condition at Discharge: Stable Plan - Discharge Summary Discharge Rx Participant: No New Discharge Prescriptions: Continue amLODIPine BESYLATE [Norvasc] 2.5 mg PO BID Prochlorperazine [Compazine] 10 mg PO Q6H PRN PRN Reason: Nausea ondansetron HCL [Zofran] 8 mg PO Q8HR PRN PRN Reason: Nausea Discharge Medication List amLODIPine BESYLATE [Norvasc] 2.5 mg PO BID 07/30/20 [History] Prochlorperazine [Compazine] 10 mg PO Q6H PRN 09/23/20 [History] ondansetron HCL [Zofran] 8 mg PO Q8HR PRN 09/23/20 [History] Follow up Appointment(s)/Referral(s): Guillaume Abrams MD [STAFF PHYSICIAN] - 1 Week (The office states they will call you with an appointment time and date.) Ángel Galvin MD [Primary Care Provider] - 1-2 days Yuri Aaron MD [STAFF PHYSICIAN] - 1 Week (The office will call you with appointment time and date early next week.) Activity/Diet/Wound Care/Special Instructions: Activity: As tolerated Diet: Heart healthy diet Special Instructions: It is very important for you to follow up with your primary care doctor, Dr. Galvin in 2-3 days for posthospitalization follow-up, urologist- Dr. Aaron for follow-up on right testicular hydrocele and needed prostate exam, and your oncologist Dr. Coffman next week. Thank you for allowing us to participate in your care, it was truly a a pleasure to have you for a patient. Discharge Disposition: HOME SELF-CARE
== END 2020-09-25 16:56 | disposition home or self-care (01) | DRG 864 ==
LOC: EC 02:26 → 6NMEDSUR 04:45 → 5NMEDONC 10:25 → OBSVTOIN 09-24 13:57
PROVIDERS: ADMIT Internal Medicine; ATTEND Internal Medicine
PROC: 30233N1 Transfusion of Nonautologous Red Blood Cells into Peripheral Vein, Percutaneous Approach (ICD-10-PCS; principal; 2020-09-24)
DX: R50.9 Fever, unspecified (principal); C25.9 Malignant neoplasm of pancreas, unspecified; E87.1 Hypo-osmolality and hyponatremia; D64.81 Anemia due to antineoplastic chemotherapy; D72.829 Elevated white blood cell count, unspecified; I10 Essential (primary) hypertension; K80.20 Calculus of gallbladder without cholecystitis without obstruction; K82.8 Other specified diseases of gallbladder; N50.89 Other specified disorders of the male genital organs; Z85.828 Personal history of other malignant neoplasm of skin; N40.0 Benign prostatic hyperplasia without lower urinary tract symptoms; N43.3 Hydrocele, unspecified; T45.1X5A Adverse effect of antineoplastic and immunosuppressive drugs, initial encounter; E87.6 Hypokalemia; Z20.822 Contact with and (suspected) exposure to COVID-19; Z79.82 Long term (current) use of aspirin; Z80.0 Family history of malignant neoplasm of digestive organs; Z80.8 Family history of malignant neoplasm of other organs or systems; Z82.3 Family history of stroke; Z82.49 Family history of ischemic heart disease and other diseases of the circulatory system; Z83.79 Family history of other diseases of the digestive system; Z79.899 Other long term (current) drug therapy
CPT/HCPCS: 36415; 71045; 74177; 76705; 76870; 80048; 80053; 80202; 81001; 83605; 83690; 83735; 84100; 84132; 85025; 85027; 86850; 86900; 86901; 86920; 87040; 87086; 87635; 93005; 93975; 96360; 96361; 99284